=== PATIENT | male | born 1990 | race Caucasian/White ===

== ENCOUNTER 2020-04-19 16:56 | Emergency (ER) | payer MEDICAID ==
[~2020-04-19] VITALS: Ht 167.6 cm; Wt 78.0 kg
[2020-04-19 17:07] VITALS: Ht 167.6 cm; Wt 78.0 kg
[2020-04-19 18:22] VITALS: BP 127/78
== END 2020-04-19 19:16 | disposition home or self-care (01) ==
LOC: ED 16:56
DX: N48.89 Other specified disorders of penis (principal); F17.210 Nicotine dependence, cigarettes, uncomplicated; Z91.030 Bee allergy status
CPT/HCPCS: J2930; Q0163